=== PATIENT | female | born 1955 | race Caucasian/White ===

== ENCOUNTER → 2021-02-05 | Outpatient (CLI) | payer MEDICARE ==
[2021-02-05 15:47] LABS: African American GFR (CKD) 105.4 (60.0-200.0); Albumin 4.2 g/dL (3.80-4.90); Albumin/Globulin Ratio 1.91 (1.60-3.17); Anion Gap 6.8 mmol/L (4.00-12.00); BUN/Creat Ratio 18.57 Ratio (12.00-20.00); Calcium 9.4 mg/dL (8.7-10.3); Carbon Dioxide 28.2 mmol/L (21.6-31.8); Globulin 2.2 g/dL (1.6-3.3); Magnesium 2.2 mg/dL (1.5-2.4); Non-African American GFR(CKD) 90.9 (60.0-200.0); Potassium 4.3 mmol/L (3.5-5.5); Total Bilirubin 0.7 mg/dL (0.2-1.2); Total Protein 6.4 g/dL (6.2-8.2)
== END | disposition home or self-care (01) ==
LOC: LABWHC1 09:23
PROVIDERS: ATTEND Internal Medicine Interventional Cardiology
DX: R00.2 Palpitations (principal)
CPT/HCPCS: 36415; 80053; 83735; 84443

== ENCOUNTER → 2023-03-20 | Outpatient (CLI) | payer MEDICARE ==
[2023-03-20 21:09] LABS: ALT 16 U/L (8-44); AST 19 U/L (13-35); Albumin 4.4 d/dL (3.8-4.9); Albumin/Globulin Ratio 1.91 Ratio (1.60-3.17); Alkaline Phosphatase 80 U/L (41-126); Blood Urea Nitrogen 12.9 mg/dL (9.0-27.0); Calcium 9.6 mg/dL (8.7-10.3); Carbon Dioxide 24.7 mmol/L (21.6-31.8); Chloride 105 mmol/L (96-109); Globulin 2.3 d/dL (1.6-3.3); Glucose 89 mg/dL (70-110); Potassium 4.3 mmol/L (3.5-5.5); Sodium 142 mmol/L (135-145); Total Bilirubin 0.5 mg/dL (0.3-1.2); Total Protein 6.7 d/dL (6.2-8.2)
== END | disposition home or self-care (01) ==
LOC: LABWHC1 11:50
PROVIDERS: ATTEND Nurse Practitioner Adult Health
DX: I10 Essential (primary) hypertension (principal); I49.1 Atrial premature depolarization; R00.2 Palpitations
CPT/HCPCS: 36415; 80053; 84443

== ENCOUNTER → 2024-05-27 | Outpatient (CLI) | payer MEDICARE ==
[2024-05-27 10:57] LABS: HCT 43.8 % (37.2-46.3); HGB 14.5 g/dL (12.0-15.0); MCH 33.3 pg (27.0-32.0); MCHC 33.1 g/dL (32.0-37.0); MCV 100.5 FL (80.0-97.0); Mean Platelet Volume 9.8 FL (9.5-12.2); NRBC Per 100 WBC 0 X 10*3/uL (0.00-0.01); Platelet Count 192 X 10*3/uL (140-440); RBC 4.36 X 10*6/uL (4.10-5.20); RDW 11.6 % (11.5-14.5); WBC 3.79 X 10*3/uL (4.50-10.00)
[2024-05-27 11:04] LABS: Blood Urea Nitrogen 13.9 mg/dL (9.0-27.0); Carbon Dioxide 26.8 mmol/L (21.6-31.8); Chloride 106 mmol/L (96-109); Potassium 4.5 mmol/L (3.5-5.5); Sodium 141 mmol/L (135-145)
== END | disposition home or self-care (01) ==
LOC: LABPAT 07:09
PROVIDERS: ATTEND Internal Medicine Interventional Cardiology
DX: Z01.818 Encounter for other preprocedural examination
CPT/HCPCS: 36415; 80051; 82565; 84520; 85027

== ENCOUNTER 2024-05-30 06:04 | Day surgery (SDC) | payer MEDICARE ==
[2024-05-28 10:11] VITALS: BMI 21.6
[~2024-05-30 06:04] MED LIST: ALPRAZolam 0.25 MG TAB PO PRN; ALPRAZolam 0.5 MG TAB PO PRN; HEPARIN SODIUM,PORCINE (1 ML) 2,500 UNIT in SODIUM CHLORIDE 0.9% 250 ML IRRIGATION PRN; HEPARIN SODIUM,PORCINE 10,000 UNIT in SODIUM CHLORIDE 0.9% 1,000 ML IRRIGATION PRN; NITROGLYCERIN SL TABS 0.4 MG TAB SUBLINGUAL PRN
[2024-05-30 06:49] VITALS: RESP 18; TEMP 98.1
[2024-05-30] MEDS: SODIUM CHLORIDE 0.9% 1,000 ML in EMPTY BAG 1 BAG IV SCH (06:49)
[2024-05-30] MEDS: SODIUM CHLORIDE 0.9% 1,000 ML IV ONE (06:49)
[2024-05-30] MEDS ORDERED: ASPIRIN 325 MG TAB PO ONE (07:00)
[2024-05-30] MEDS ORDERED: HEPARIN SODIUM 1,000 UN/ML (10ML VL) ONE (07:09)
[2024-05-30] MEDS ORDERED: VERAPAMIL 2.5 MG/ML 2 ML AMP ONE (07:09)
[2024-05-30] MEDS ORDERED: fentaNYL (PF) 50 MCG/ML 2 ML AMP ONE (07:09)
[2024-05-30] MEDS ORDERED: LIDOCAINE 1% INJ 10MG/ML (20 ML MDV) ONE (07:09)
[2024-05-30] MEDS: BENZOCAINE SPRAY 1 CAN TOPICAL ONE (07:36)
[2024-05-30] MEDS: fentaNYL (PF) 50 MCG/ML 2 ML AMP IVP ONE (07:40)
[2024-05-30] MEDS: MIDAZOLAM 2 MG/2 ML VIAL IVP ONE ×2 (07:40→08:14)
[2024-05-30] MEDS: LIDOCAINE 1% INJ 10MG/ML (20 ML MDV) SQ ONE (08:12)
[2024-05-30] MEDS: VERAPAMIL SYRINGE (5 MG/10 ML) INTRAARTER ONE (08:13)
[2024-05-30] MEDS: HEPARIN SODIUM,PORCINE 10,000 UNIT in SODIUM CHLORIDE 0.9% 1,000 ML IRRIGATION ONE (08:29)
[2024-05-30] MEDS: HEPARIN SODIUM 1,000 UN/ML (10ML VL) IVP ONE (08:29)
[2024-05-30] MEDS: HEPARIN SODIUM,PORCINE (1 ML) 2,500 UNIT in SODIUM CHLORIDE 0.9% 250 ML IRRIGATION ONE (08:30)
[2024-05-30] MEDS: IOPAMIDOL-370 200ML BTL INJ ONE (08:38)
[2024-05-30 08:39] LABS: O2 Sat Blood Gas 78.9 %
[2024-05-30 08:40] LABS: O2 Sat Blood Gas 95.5 %
[2024-05-30 08:41] LABS: O2 Sat Blood Gas 79.9 %
[2024-05-30] MEDS ORDERED: RX INFO: IV CONTRAST WAS GIVEN 1 EACH MISC MISCELLANE PRN (08:47)
[2024-05-30] MEDS ORDERED: SODIUM CHLORIDE 0.9% 1,000 ML IV SCH (09:00)
[2024-05-30 12:06] VITALS: BP 114/62; PULSE 56
--- NOTE | 2024-05-30 13:05 | P.CARDCATH ---
Date of Procedure: 05/30/24 Description of Procedure: Cardiac Catheterization: The patient is a 69-year-old female who has been complaining of progressive dyspnea and fatigue and her echocardiogram showed moderate severe aortic regurgitation with preserved systolic function. Recommendations were made regarding cardiac catheterization, the risks and the complications were discussed with the patient who is in full understanding and agreement. Procedure Description: Patient was brought to lab courier in fasting semi-sedated state after receiving Fentanyl and Benadryl achieiving moderate conscious sedated state. Using Xylocaine Anesthesia and modified Seldinger technique, a 6-[place] sheath was introduced in the right radial artery . The intravenous access in the right basilic vein was exchanged to a 6 [place] sheath. Right heart catheterization was performed using [place]-Alisa catheter, multiple pressure and samples were obtained. Cardiac output by thermodilution was calculated. Subsequently, selective coronary angiography was performed using a 5-[place] 3.5 bend Ace catheter. Multiple views of the coronary artery including hemiaxial views were obtained. The 6 [place] pigtail catheter was used to cross the aortic valve and LVEDP was calculated. An SUD[place]ESE view of the ascending aorta was performed. Following that, catheter and sheath were removed. Hemostasis was obtained with deployment of vascular band . There was no immediate complication. Patient was returned to room in stable condition. Of note, the patient received a total of 3500 units of intravenous heparin as well as intra-arterial verapamil. Findings: Left main: This is a large size vessel, bifurcating into LAD and left circumflex, left main has no obstructive disease LAD: This is a large size vessel, giving rise to a large diagonal branch, the LAD and its branches have no obstructive disease. Left circumflex: This is a large nondominant vessel giving rise to 3 obtuse marginal branch, the left circumflex and its branches have no obstructive disease RCA: This is a large dominant vessel, bifurcating into PDA and PLV, the bifurcation of the PDA and PLV is in the midsegment. The right coronary artery and its branches have no obstructive disease Left Ventriculogram: Not performed, aortogram was performed in the SUDANESE view and revealed a 3+ aortic regurgitation with mild dilatation of the ascending aorta Hemodynamics: Pulmonary artery systolic of 18, diastolic of 6 with a mean of 11 mmHg, pulmonary capillary wedge pressure A-wave of 4 V wave of 2 with a mean of 2 mmHg, right ventricular systolic pressure of 18 with an end-diastolic of 6 mmHg. Right atrium A wave of 2, V wave of 2 with a mean of 2 mmHg, LVEDP was 12-16 mmHg, there was no gradient across the aortic valve. Pulmonary artery saturation 79% right atrium 80%. Cardiac output by thermodilution 7.7 L/min with an index of 4.4 L/min/m Conclusion: 1. Normal coronary arteries with no obstructive disease 2. Right dominance 3. 3+ aortic regurgitation 4. Normal right-sided pressure Recommendations: There is no evidence of significant valvular disease to explain her symptoms, I will continue present therapy with close follow-up of her valvular anatomy.. The findings and the recommendations were discussed with the patient and the family and they were in full understanding and agreement.
--- NOTE | 2024-05-30 13:07 | P.PCN ---
Date of Procedure: 05/30/24 Description of Procedure: Indication: Aortic regurgitation Procedure Description: After explaining the procedure to the patient, it's risk and complications, blood pressure, heart rate and O2 saturation were monitored. The throat was sprayed with Cetacaine. Patient received 2 mg intravenous Versed, 50 mcg intravenous fentanyl. The probe was introduced into the esophagus without difficulty. Images were obtained. Following that, the probe was removed. There was no immediate complication. Findings: Left atrial size is normal, left atrial appendage is normal. Left ventricular size and systolic function are normal. The aortic valve is a tricuspid valve with normal opening. Mitral valve appears to be normal. Tricuspid valve is normal. No pericardial fusion was noted. Contrast bubble study revealed no shunting across the interatrial septum. There is mild dilatation of the ascending aorta. Descending thoracic aorta appears to be normal. Doppler: Pulse wave and color Doppler were obtained, and revealed moderate mitral and aortic regurgitation. Mild tricuspid regurgitation was noted. There was no shunting by color Doppler study. Conclusion: 1. Normal ventricle size and systolic function 2. Normal left atrial appendage 3. Moderate aortic and mitral regurgitation 4. Mild tricuspid regurgitation 5. No shunting across the interatrial septum Duration of sedation 15 minutes
== END 2024-05-30 12:10 | disposition home or self-care (01) ==
LOC: CATHCVL 06:04
PROVIDERS: ATTEND Internal Medicine Interventional Cardiology
DX: I08.3 Combined rheumatic disorders of mitral, aortic and tricuspid valves (principal); E78.5 Hyperlipidemia, unspecified; I10 Essential (primary) hypertension; E07.9 Disorder of thyroid, unspecified; F10.90 Alcohol use, unspecified, uncomplicated; Z88.2 Allergy status to sulfonamides; Z87.891 Personal history of nicotine dependence; Z79.899 Other long term (current) drug therapy
CPT/HCPCS: 93312; 93320; 93325; 93460; 93567; 85018; 82810; 99152; C1769 ×2; C1894; C1751; J2250; J1644 ×3; J2001; J3010; Q9967